=== PATIENT | female | born 1955 | race Caucasian/White ===

== ENCOUNTER → 2023-07-05 15:04 | Outpatient (REF) | payer MEDICARE, MEDICAID, SELFPAY ==
--- NOTE | 2023-07-05 15:13 | CA_ITS ---
Transthoracic Echocardiogram Patient (Last, First, Middle): Chanel Huertas, Gender: Female Date of : 1955 Age: 68 Procedure Date: 07/05/2023 Procedure Type: Transthoracic Echocardiogram Location: OP Height: 167.64 cm Weight: 98.43 kg BSA: 2.07 m2 Heart Rate: bpm BP: 140 / 76 mmHg Nephrology Nurse: BENNY Referring MD: Wicho Brumfield MD Gallery Intern: Ronnie Adams MD Symptoms: DANG R06.09 Study Quality: Fair, contrast ECG Rhythm: Sinus Conclusions: - 1. Technically limited study despite use of contrast agent 2. Hyperdynamic LV systolic function with LVEF of greater than 70% with impaired relaxation filling pattern 3. Limited visualization cardiac valves with normal cardiac valvular Dopplers 4. Upper limits of normal ascending aortic size Findings Procedure Information Contrast agent, definity, is being given per protocol without apparent complications. Left Ventricle Normal left ventricular cavity size. There is normal left ventricular wall thickness. The left ventricular systolic function is hyperdynamic. The visually estimated ejection fraction is >70%. Spectral Doppler is indicative of an impaired relaxation filling pattern. E/E prime ratio is between 8 and 15 consistent with indeterminate filling pressures. Right Ventricle The right ventricle was not well visualized. Atria The left atrium is normal in size. Interatrial shunt cannot be excluded. The right atrium was not well visualized. Aortic Valve The aortic valve was not well visualized. There is no aortic valve stenosis. There is no aortic valve regurgitation. Mitral Valve Likely normal mitral valve structure and function. There is trace mitral valve regurgitation. There is no mitral valve stenosis. Pulmonic Valve The pulmonic valve was not well visualized. Tricuspid Valve The tricuspid valve was not well visualized. Tricuspid regurgitation envelope is inadequate for calculation of right ventricular systolic pressure. Great Vessels The pulmonary artery was not well visualized. Venous The inferior vena cava was not well visualized. Pericardium/Pleural The pericardium was not well visualized. Prior Study Comparison No prior study available for comparison. Measurements 2D Linear Measurements IVSd: 1.12 0.6-0.9/0.6-1.0 cm LVIDd: 4.52 3.9-5.3/4.2-5.9 cm LVIDd Index: 2.18 2.4-3.2/2.2-3.1 cm/m2 LVIDs: 3.08 2.0-3.6 cm LVPWd: 1.05 0.7-1.1 cm LA Diam: 4.10 2.7-3.8/3.0-4.0 cm LAIDs Index: 1.98 1.5-2.3 cm/m2 LV Mass: 215.36 67-162/88-224 g LV Mass Index: 104.04 43-95/49-115 g/m2 LVOT Diam: 2.00 3.0+(-)1.3 cm 2D Systolic Function EF 4C: 77.80 >55% EF 2C: 76.60 >55% EF BiP: 77.30 >55% Mitral Valve MV Pk E: 0.52 MV PK A: 0.82 MV Decel Time: 195.00 E/A: 0.60 E'Lateral: 8.92 E'Medial: 3.92 E/E' Med: 13.20 E/E' Lat: 5.80 PHT: 57.00 MVA PHT: 3.86 Decel [place]: 2.65 Aortic Valve AoV Pk Adams: 1.62 AoV Mn Adams: 1.11 AoV VTI: 0.34 AoV Pk Grad: 10.00 Aov Mn Grad: 6.00 KESHIA Cont.VTI: 2.44 LVOT LVOT Pk Adams: 1.28 LVOT Mn Adams: 0.83 LVOT VTI: 0.27 LVOT Pk Grad: 7.00 LVOT Mn Grad: 3.00 LVOT Diam: 2.00 LVOT Area: 3.14 Diastolic Function MV Pk E: 0.52 MV Pk A: 0.82 E/A: 0.60 E'Medial: 3.92 E/E' Med: 13.20 E' Laterial: 8.92 E/E' Lat: 5.80 Right Ventricle TAPSE (mm): 16.60 TVS' Adams: 11.70 Tricuspid Valve TR Pk Adams: 2.10 TR Pk Grad: 18.00 Great Vessels Aorta Sinus of Valsalva: 3.46 2.0-3.[address] [place]: 2.93 1.7-3.4 cm Ao Asc: 3.50 2.1-3.4 cm Updated in Other Vendor System with Status of Final Ronnie Adams MD electronically signed on 07/05/2023 5:20:45 PM with status of Final
== END ==
LOC: HO.CARD 15:04
PROVIDERS: PCP Internal Medicine; Visit Provider Family Medicine
DX: R06.09 Other forms of dyspnea (principal)
CPT/HCPCS: 93306; Q9957

== ENCOUNTER → 2023-07-05 15:13 | Outpatient (BNV) | payer MEDICARE, MEDICAID, SELFPAY | PROVIDERS: PCP Internal Medicine; Visit Provider Internal Medicine Cardiovascular Disease | DX: R06.09 Other forms of dyspnea (principal) | CPT/HCPCS: 93306 ==

== ENCOUNTER 2024-03-23 09:12 | Outpatient (RCR) | payer MEDICARE, MEDICAID, SELFPAY | END 2024-04-21 10:40 | disposition home or self-care (01) | LOC: HO.WCC 09:12 | PROVIDERS: PCP Family Medicine; Visit Provider Surgery | DX: E11.621 Type 2 diabetes mellitus with foot ulcer (principal); L97.522 Non-pressure chronic ulcer of other part of left foot with fat layer exposed; Z79.85 Long-term (current) use of injectable non-insulin antidiabetic drugs | CPT/HCPCS: 11042; 99212 ==

== ENCOUNTER 2025-07-10 14:15 | Outpatient (RCR) | payer MEDICARE, MEDICAID, SELFPAY | END 2025-07-10 16:41 | disposition home or self-care (01) | LOC: HO.WCC 14:15 | PROVIDERS: PCP Family Medicine; Visit Provider Surgery Surgical Oncology | DX: E11.621 Type 2 diabetes mellitus with foot ulcer (principal); L97.521 Non-pressure chronic ulcer of other part of left foot limited to breakdown of skin; L84 Corns and callosities; Z79.4 Long term (current) use of insulin | CPT/HCPCS: 97597; 99212 ==